=== PATIENT | male | born 1970 | race Caucasian/White ===

== ENCOUNTER 2018-03-22 20:38 | Inpatient (IN) | payer OTHER ==
[2018-03-22] MEDS: morphine 4 MG/ML VIAL IV (21:52)
[2018-03-22] MEDS: ONDANSETRON 4 MG INJ IV (21:52)
[2018-03-22] MEDS: SOD CHLORIDE 0.9% 1,000 ML IV ×2 (21:52→23:33)
[2018-03-22 22:00] LABS: ADD MAN DIFF? NO
[2018-03-22 22:03] LABS: BASOPHIL # 0.1 10^3/ul (0.0-0.1); BASOPHILS % 0.8 % (0.0-2.0); EOSINOPHILS # 0.4 10^3/ul (0.0-0.5); EOSINOPHILS % 4.7 % (0.0-7.0); HEMATOCRIT 41.3 % (42.0-52.0); HEMOGLOBIN 13.2 g/dl (14.0-18.0); LYMPHOCYTES # 1.9 10^3/ul (0.8-2.9); LYMPHOCYTES % 19.9 % (15.0-51.0); MEAN CORPUSCULAR HEMOGLOBIN 29.1 pg (29.0-33.0); MEAN CORPUSCULAR VOLUME 91.2 fl (82.0-101.0); MEAN PLATELET VOLUME 9.1 fl (7.4-10.4); MONOCYTE # 0.6 10^3/ul (0.3-0.9); MONOCYTES % 6.5 % (0.0-11.0); NEUTROPHIL # 6.4 10^3/ul (1.6-7.5); NEUTROPHILS % 67.9 % (39.0-77.0); PLATELET COUNT 308 10^3/UL (140-415); RED BLOOD COUNT 4.53 10^6/ul (4.70-6.10); RED CELL DISTRIBUTION WIDTH 13.7 % (11.5-14.5)
[2018-03-22 22:03] LABS: WHITE BLOOD COUNT 9.4 10^3/ul (4.8-10.8)
[2018-03-22 22:19] LABS: ALANINE AMINOTRANSFERASE 37 IU/L (13-69); ALBUMIN 4.2 g/dl (3.3-4.9); ALBUMIN/GLOBULIN RATIO 1.16; ALKALINE PHOSPHATASE 79 IU/L (42-121); ANION GAP 12 (8-16); ASPARTATE AMINO TRANSFERASE 21 IU/L (15-46); BILIRUBIN,INDIRECT 0.3 mg/dl (0-1.1); BILIRUBIN,TOTAL 0.3 mg/dl (0.2-1.3); BLOOD UREA NITROGEN 15 mg/dl (7-20); CALCIUM 9.1 mg/dl (8.4-10.2); CARBON DIOXIDE 29 mmol/L (21-31); CHLORIDE 104 mmol/L (97-110); CREATININE 0.76 mg/dl (0.61-1.24); GLUCOSE 109 mg/dl (70-220); LIPASE 46 U/L (23-300); POTASSIUM 4.3 mmol/L (3.5-5.1); SODIUM 141 mmol/L (135-144); TOTAL PROTEIN 7.8 g/dl (6.1-8.1)
[2018-03-22 22:20] LABS: LACTIC ACID 0.6 mmol/L (0.5-2.0)
[2018-03-22] MEDS: HYDROmorphONE 2 MG/ML SYG IV (23:33)
[2018-03-23 01:10] LABS: INR 0.87; PROTIME 11.9 Sec (11.9-14.9); PT RATIO 0.9
[2018-03-23 01:11] LABS: PARTIAL THROMBOPLASTIN TIME 31.2 Sec (25.0-35.0)
[2018-03-23] MEDS ORDERED: ROCURONIUM 50 MG INJ (01:54)
[2018-03-23] MEDS ORDERED: PROPOFOL 20 ML (01:54)
[2018-03-23] MEDS ORDERED: POLYMYXIN/BACITRACIN 1L IRRIG (02:04)
[2018-03-23] MEDS ORDERED: LIDOCAINE 1% (MPF) 30 ML INJ (02:04)
[2018-03-23] MEDS ORDERED: BUPIVACAINE 0.25%/EPI (SDV) 30 ML INJ (02:04)
[2018-03-23] MEDS ORDERED: SOD CHLORIDE 0.9% 1,000 ML IV (02:14)
[2018-03-23] MEDS ORDERED: NACL 0.9% 3 ML SYG IV (02:30)
[2018-03-23] MEDS ORDERED: KETOROLAC 30 MG INJ IV (02:30)
[2018-03-23] MEDS ORDERED: ACETAMINOPHEN 325 MG TAB PO ×2 (02:30→04:00)
[2018-03-23] MEDS ORDERED: hydrALAzine 20 MG INJ IV (02:30)
[2018-03-23] MEDS ORDERED: MIDAZOLAM 1 MG/ML 2 ML INJ IV (02:30)
[2018-03-23] MEDS ORDERED: DIPHENHYDRAMINE 50 MG INJ IV (02:30)
[2018-03-23] MEDS ORDERED: ALBUTEROL 0.083% (NEB) 2.5 MG/3 ML AMP HHN (02:30)
[2018-03-23] MEDS ORDERED: METOCLOPRAMIDE 10 MG INJ IV (02:30)
[2018-03-23] MEDS ORDERED: MEPERIDINE 25 MG INJ IV (02:30)
[2018-03-23] MEDS ORDERED: EPHEDrine SULFATE 50 MG/5 ML SYG IV (02:30)
[2018-03-23] MEDS ORDERED: HYDROmorphONE 1 MG/5 ML IV SYRINGE IV ×2 (02:30)
[2018-03-23] MEDS ORDERED: HYDROmorphONE 0.5 MG/0.5 ML SYG IV ×2 (02:30→04:00)
[2018-03-23] MEDS ORDERED: FENTAnyl 50 MCG/ML VIAL IV ×3 (02:30)
[2018-03-23] MEDS ORDERED: ONDANSETRON 4 MG INJ IV (02:30)
[2018-03-23] MEDS ORDERED: OXYCODONE/ACETAMINOPHEN (5/325) TAB PO ×2 (02:30)
[2018-03-23] MEDS ORDERED: LABETALOL HCL 20MG INJ IV (02:30)
[2018-03-23] MEDS ORDERED: ACETAMINOPHEN 1000MG/100ML IV 100 ML (02:34)
[2018-03-23] MEDS: BUPIVACAINE 0.25%/EPI (SDV) 30 ML INJ INJ (02:59)
[2018-03-23] MEDS: LIDOCAINE 1% (MPF) 30 ML INJ INJ (03:01)
[2018-03-23] MEDS ORDERED: SUGAMMADEX SODIUM 200 MG/2 ML VIAL IV (03:54)
[2018-03-23] MEDS: HYDROmorphONE 1 MG/5 ML IV SYRINGE IV (04:37)
[2018-03-23] MEDS: ONDANSETRON 4 MG INJ IV ×2 (04:39→17:09)
[2018-03-23] MEDS: D5W-0.45 NACL + KCL 20 MEQ 1,000 ML IV (05:55)
[2018-03-23] MEDS ORDERED: LIDOCAINE 2% (SDV) 5 ML INJ (07:00)
[2018-03-23] MEDS: FAMOTIDINE 20 MG INJ IV ×2 (09:14→21:42)
[2018-03-23] MEDS: HYDROCODONE/APAP (5/325) TAB PO (09:15)
[2018-03-23 12:26] LABS: ADD MAN DIFF? NO
[2018-03-23 12:40] LABS: WHITE BLOOD COUNT 6.8 10^3/ul (4.8-10.8)
[2018-03-23 12:40] LABS: BASOPHIL # 0.1 10^3/ul (0.0-0.1); BASOPHILS % 0.7 % (0.0-2.0); EOSINOPHILS # 0.4 10^3/ul (0.0-0.5); EOSINOPHILS % 6.1 % (0.0-7.0); HEMATOCRIT 36.4 % (42.0-52.0); HEMOGLOBIN 11.9 g/dl (14.0-18.0); LYMPHOCYTES # 2.1 10^3/ul (0.8-2.9); LYMPHOCYTES % 30.3 % (15.0-51.0); MEAN CORPUSCULAR HEMOGLOBIN 30.1 pg (29.0-33.0); MEAN CORPUSCULAR HGB CONC 32.7 g/dl (32.0-37.0); MEAN CORPUSCULAR VOLUME 91.9 fl (82.0-101.0); MEAN PLATELET VOLUME 9.4 fl (7.4-10.4); MONOCYTE # 0.7 10^3/ul (0.3-0.9); MONOCYTES % 9.7 % (0.0-11.0); NEUTROPHIL # 3.6 10^3/ul (1.6-7.5); NEUTROPHILS % 53.1 % (39.0-77.0); PLATELET COUNT 266 10^3/UL (140-415); RED BLOOD COUNT 3.96 10^6/ul (4.70-6.10); RED CELL DISTRIBUTION WIDTH 13.7 % (11.5-14.5)
[2018-03-23 12:47] LABS: ALANINE AMINOTRANSFERASE 29 IU/L (13-69); ALBUMIN 3.4 g/dl (3.3-4.9); ALBUMIN/GLOBULIN RATIO 1.36; ALKALINE PHOSPHATASE 57 IU/L (42-121); ANION GAP 14 (8-16); ASPARTATE AMINO TRANSFERASE 18 IU/L (15-46); BILIRUBIN,INDIRECT 0.3 mg/dl (0-1.1); BILIRUBIN,TOTAL 0.3 mg/dl (0.2-1.3); BLOOD UREA NITROGEN 13 mg/dl (7-20); CALCIUM 8.3 mg/dl (8.4-10.2); CARBON DIOXIDE 26 mmol/L (21-31); CHLORIDE 103 mmol/L (97-110); CREATININE 0.67 mg/dl (0.61-1.24); GLUCOSE 110 mg/dl (70-220); MAGNESIUM 1.9 mg/dl (1.7-2.5); SODIUM 139 mmol/L (135-144); TOTAL PROTEIN 5.9 g/dl (6.1-8.1)
[2018-03-23 13:59] LABS: HEMOGLOBIN A1C 5.8 % (0-5.9)
[2018-03-23] MEDS: HYDROmorphONE 2 MG TAB PO (21:41)
[2018-03-23] MEDS: KETOROLAC 30 MG INJ IV (21:44)
[2018-03-23] MEDS ORDERED: NITROGLYCERIN (SL) 0.4 MG TAB SL (22:30)
[2018-03-23] MEDS: NITROGLYCERIN (SL) 0.4 MG TAB SL (23:44)
[2018-03-23 23:49] LABS: TROPONIN-I < 0.012 ng/ml (0.000-0.120)
[2018-03-23] MEDS: ALPRAZOLAM 0.25 MG TAB PO (23:56)
[2018-03-24] MEDS: SOD CHLORIDE 0.9% 500 ML IV (02:48)
[2018-03-24] MEDS: HYDROCODONE/APAP (5/325) TAB PO ×2 (02:59→11:15)
[2018-03-24] MEDS: DEXTROSE 5%-0.45% NACL 1,000 ML IV ×2 (04:08→12:30)
[2018-03-24 05:12] LABS: ADD MAN DIFF? NO
[2018-03-24 05:18] LABS: WHITE BLOOD COUNT 9.7 10^3/ul (4.8-10.8)
[2018-03-24 05:18] LABS: BASOPHILS % 0.2 % (0.0-2.0); EOSINOPHILS # 0.2 10^3/ul (0.0-0.5); EOSINOPHILS % 2.5 % (0.0-7.0); HEMATOCRIT 40.6 % (42.0-52.0); LYMPHOCYTES # 1.4 10^3/ul (0.8-2.9); LYMPHOCYTES % 14.3 % (15.0-51.0); MEAN CORPUSCULAR HEMOGLOBIN 29.3 pg (29.0-33.0); MEAN CORPUSCULAR VOLUME 91.4 fl (82.0-101.0); MEAN PLATELET VOLUME 9.3 fl (7.4-10.4); MONOCYTE # 0.7 10^3/ul (0.3-0.9); MONOCYTES % 7.2 % (0.0-11.0); NEUTROPHIL # 7.3 10^3/ul (1.6-7.5); NEUTROPHILS % 75.6 % (39.0-77.0); PLATELET COUNT 281 10^3/UL (140-415); RED BLOOD COUNT 4.44 10^6/ul (4.70-6.10); RED CELL DISTRIBUTION WIDTH 13.6 % (11.5-14.5)
[2018-03-24 05:43] LABS: ANION GAP 13 (8-16); BLOOD UREA NITROGEN 15 mg/dl (7-20); CALCIUM 8.4 mg/dl (8.4-10.2); CARBON DIOXIDE 22 mmol/L (21-31); CHLORIDE 109 mmol/L (97-110); CREATININE 0.61 mg/dl (0.61-1.24); GLUCOSE 121 mg/dl (70-220); POTASSIUM 4.3 mmol/L (3.5-5.1); SODIUM 140 mmol/L (135-144)
[2018-03-24] MEDS: HYDROmorphONE 2 MG TAB PO (06:51)
[2018-03-24] MEDS: FAMOTIDINE 20 MG INJ IV (08:38)
== END 2018-03-24 14:45 | disposition home or self-care (01) | DRG 355 ==
LOC: E/R 20:38 → MS1 03-23 01:51
PROC: 0WQF4ZZ Repair Abdominal Wall, Percutaneous Endoscopic Approach (ICD-10-PCS; principal; 2018-03-23 02:23)
PROC: 0W0F4ZZ Alteration of Abdominal Wall, Percutaneous Endoscopic Approach (ICD-10-PCS; 2018-03-23 02:23)
PROC: 0HB7XZZ Excision of Abdomen Skin, External Approach (ICD-10-PCS; 2018-03-23 02:23)
DX: K42.0 Umbilical hernia with obstruction, without gangrene (principal); L98.7 Excessive and redundant skin and subcutaneous tissue; F17.210 Nicotine dependence, cigarettes, uncomplicated; F41.9 Anxiety disorder, unspecified
CPT/HCPCS: 36415; 71045; 74176; 80048; 80053; 83036; 83605; 83690; 83735; 84443; 84484; 85025; 85610; 85730; 88302; 93005; 96361; 96374; 96375; 99285-25

== ENCOUNTER 2018-09-26 11:05 | Emergency (ER) | payer OTHER | END 2018-09-26 12:22 | disposition home or self-care (01) | LOC: FTE 11:05 | DX: L03.116 Cellulitis of left lower limb (principal); J45.909 Unspecified asthma, uncomplicated; Z87.891 Personal history of nicotine dependence | CPT/HCPCS: 93971; 99284-25 ==

== ENCOUNTER 2018-10-10 04:23 | Emergency (ER) | payer OTHER ==
[2018-10-10] MEDS: DIPHTH/TET/ACEL PERTUSS (ADULT) 0.5 ML VIAL IM* (05:35)
[2018-10-10] MEDS: HYDROCODONE/APAP (10/325) TAB PO (05:36)
== END 2018-10-10 05:48 | disposition home or self-care (01) ==
LOC: FTE 05:48
DX: M65.051 Abscess of tendon sheath, right thigh (principal); R40.2252 Coma scale, best verbal response, oriented, at arrival to emergency department; R40.2362 Coma scale, best motor response, obeys commands, at arrival to emergency department; R40.2142 Coma scale, eyes open, spontaneous, at arrival to emergency department; J45.909 Unspecified asthma, uncomplicated
CPT/HCPCS: 90471; 90715; 99283-25

== ENCOUNTER 2018-10-12 03:16 | Emergency (ER) | payer OTHER ==
[2018-10-12] MEDS ORDERED: FAMOTIDINE 20 MG INJ IV (04:09)
[2018-10-12] MEDS ORDERED: LIDOCAINE/MYLANTA 40 ML BTL PO (04:09)
[2018-10-12] MEDS ORDERED: BELLADONNA/PHENOBARBITAL TAB PO (04:09)
[2018-10-12] MEDS ORDERED: SOD CHLORIDE 0.9% 1,000 ML IV (04:09)
[2018-10-12] MEDS: TRIMETHOPRIM/SULFAMETHOX (DS) TAB PO (04:22)
[2018-10-12] MEDS: ONDANSETRON (ODT) 4 MG TAB ODT (04:22)
[2018-10-12] MEDS: HYDROCODONE/APAP (10/325) TAB PO (04:23)
[2018-10-12] MEDS: CEPHALEXIN 500 MG CAP PO (04:23)
[2018-10-12] MEDS: LIDOCAINE 1%/EPI (MDV) 50 ML INJ INJ (04:38)
== END 2018-10-12 04:57 | disposition home or self-care (01) ==
LOC: E/R 03:16
DX: L02.415 Cutaneous abscess of right lower limb (principal); L03.115 Cellulitis of right lower limb; J45.909 Unspecified asthma, uncomplicated
CPT/HCPCS: 10060; 99283-25

== ENCOUNTER 2018-10-14 00:54 | Emergency (ER) | payer OTHER | END 2018-10-14 01:38 | disposition home or self-care (01) | LOC: FTE 00:54 | DX: Z48.01 Encounter for change or removal of surgical wound dressing (principal); J45.909 Unspecified asthma, uncomplicated | CPT/HCPCS: 99281 ==

== ENCOUNTER 2018-10-19 05:10 | Emergency (ER) | payer OTHER | END 2018-10-19 05:51 | disposition home or self-care (01) | LOC: FTE 05:10 | DX: Z48.01 Encounter for change or removal of surgical wound dressing (principal); J45.909 Unspecified asthma, uncomplicated | CPT/HCPCS: 99283; Z7502 ==

== ENCOUNTER 2019-01-05 03:41 | Emergency (ER) | payer OTHER ==
[2019-01-05] MEDS ORDERED: IPRATROPIUM (NEB) 0.5 MG/2.5 ML AMP NEB (04:19)
[2019-01-05] MEDS: ALBUTEROL 0.083% (NEB) 2.5 MG/3 ML AMP NEB ×2 (04:33)
[2019-01-05] MEDS: IPRATROPIUM (NEB) 0.5 MG/2.5 ML AMP NEB (04:33)
[2019-01-05] MEDS: METHYLPREDNISOLONE 125 MG INJ IV (05:12)
== END 2019-01-05 06:27 | disposition home or self-care (01) ==
LOC: FTE 06:27
DX: J45.901 Unspecified asthma with (acute) exacerbation (principal)
CPT/HCPCS: 94644; 96374; 99284-25